=== PATIENT | female | born 1945 | race Caucasian/White ===

== ENCOUNTER → 2017-09-28 07:05 | Outpatient (CLI) | payer MEDICARE, BC, SELFPAY ==
[2017-09-28 09:52] LABS: AST(SGOT) 20 U/L (15-37); Alanine Aminotransfer ALT/SGPT 20 U/L (13-56); Albumin, Serum 3.8 g/dL (3.2-5.0); Alkaline Phosphatase 95 U/L (45-117); Anion Gap 5 (5-15); BUN 18 mg/dL (7-18); BUN/Creat Ratio 17.1 RATIO (10-20); Chloride 104 mmol/L (98-107); Cholesterol 175 mg/dL (200); Creatinine, Serum 1.05 mg/dL (0.55-1.02); EST Glomerular Filtration Rate 55 mL/min (>60); Est Glom Filt Rate - Afr Amer 66 mL/min (>60); Globulin 3.9 g/dL (2.2-4.2); Glucose 84 mg/dL (74-106); High Density Lipoprotein 69 mg/dL; Potassium 3.9 mmol/L (3.5-5.1); Protein, Total 7.7 g/dL (6.4-8.2); Sodium Level 140 mmol/L (136-145); Triglycerides 115 mg/dL; Very Low Density Lipoprotein 23 mg/dL (5-40)
== END ==
PROVIDERS: Family Provider Family Medicine; PCP Family Medicine; Visit Provider Family Medicine
DX: I10 Essential (primary) hypertension (principal)
CPT/HCPCS: 36415; 80053; 80061

== ENCOUNTER → 2018-08-12 | Outpatient (CLI) | payer MEDICARE, BC, SELFPAY ==
[2018-08-06 15:25] VITALS: BMI 25.9
[2018-08-12 12:30] LABS: ALB/GLOB Ratio 0.9 RATIO (0.9-2.4); AST(SGOT) 23 U/L (15-37); Alanine Aminotransfer ALT/SGPT 23 U/L (13-56); Albumin, Serum 3.6 g/dL (3.2-5.0); Alkaline Phosphatase 96 U/L (45-117); BUN 15 mg/dL (7-18); BUN/Creat Ratio 15.3 RATIO (10-20); Calcium,Total 9.2 mg/dL (8.5-10.1); Chloride 104 mmol/L (98-107); Cholesterol 163 mg/dL (200); Creatinine, Serum 0.98 mg/dL (0.55-1.02); EST Glomerular Filtration Rate 59 mL/min (>60); Est Glom Filt Rate - Afr Amer 72 mL/min (>60); Globulin 3.8 g/dL (2.2-4.2); Glucose 84 mg/dL (74-106); Potassium 4.6 mmol/L (3.5-5.1); Protein, Total 7.4 g/dL (6.4-8.2); Sodium Level 141 mmol/L (136-145); Triglycerides 105 mg/dL; Very Low Density Lipoprotein 21 mg/dL (5-40)
[2018-08-12 12:31] LABS: Anion Gap 5 (5-15); High Density Lipoprotein 68 mg/dL
== END | disposition home or self-care (01) ==
LOC: BIMLAB 08:00
PROVIDERS: Family Provider Family Medicine; PCP Family Medicine; Visit Provider Family Medicine
DX: E78.5 Hyperlipidemia, unspecified (principal)
CPT/HCPCS: 36415; 80053; 80061

== ENCOUNTER → 2018-12-23 12:40 | Outpatient (CLI) | payer MEDICARE, BC, SELFPAY ==
[2018-12-23 12:34] VITALS: BMI 25.9
--- NOTE | 2018-12-23 12:44 | RAD_ITS ---
STUDY: X-RAY - LEFT HAND REASON FOR EXAM: Fall with dislocation of the ring finger in September, knot at base of finger. TECHNIQUE: 3 view(s) of the hand. COMPARISON: None. FINDINGS: There is osteopenia. Normal radiocarpal articulation. Normal distal radioulnar joint. Normal visualized carpal bones. There is moderate joint space narrowing of the triscaphe articulation. There is severe joint space narrowing of the carpometacarpal articulation of the thumb with an ossicle at the radial aspect of the trapezium. Normal second through fifth carpometacarpal joints. There is a nondisplaced oblique fracture of the fourth metacarpal with callus formation. Normal metacarpophalangeal joint of the thumb. Normal interphalangeal joint of the thumb. Normal proximal and distal phalanges of the thumb. Normal metacarpophalangeal joints of the second through fifth fingers. Normal proximal and distal interphalangeal joints of the second through fifth fingers. Normal phalanges of the second through fifth fingers. There is soft tissue swelling of the proximal fourth digit. RAD/Hand Min 3 Views IMPRESSION: Healing fourth metacarpal fracture. 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 Electronically Signed: Scott Edward MD at 13:53 EDT Tel , Service support ,
--- NOTE | 2018-12-23 13:12 | RAD_ITS ---
STUDY: X-RAY - LEFT HAND, ATTENTION RING FINGER REASON FOR EXAM: Fall 2 months ago. TECHNIQUE: 3 view(s) of the finger were obtained. COMPARISON: None. FINDINGS: There is osteopenia. There is a nondisplaced oblique fracture of the fourth metacarpal diaphysis with callus formation. Normal metacarpophalangeal joint. Normal proximal phalanx. Normal middle phalanx. Normal distal phalanx. Normal proximal interphalangeal joint. Normal distal interphalangeal joint. There is soft tissue swelling of the proximal fourth digit. RAD/Finger(s) Min 2 Views IMPRESSION: Healing fracture of the fourth metacarpal. Electronically Signed: Scott Edward MD at 13:52 EDT Tel , Service support ,
== END ==
PROVIDERS: Family Provider Family Medicine; PCP Family Medicine; Referring Provider Orthopaedic Surgery; Visit Provider Orthopaedic Surgery
DX: S69.92XA Unspecified injury of left wrist, hand and finger(s), initial encounter (principal); S62.609A Fracture of unspecified phalanx of unspecified finger, initial encounter for closed fracture
CPT/HCPCS: 73130; 73140

== ENCOUNTER → 2018-12-25 14:48 | Outpatient (CLI) | payer MEDICARE, BC, SELFPAY ==
[2018-12-23 12:34] VITALS: BMI 25.9
--- NOTE | 2018-12-25 14:49 | US_ITS ---
STUDY: SUPERFICIAL ULTRASOUND - RIGHT FOURTH DIGIT REASON FOR EXAM: Female, 73 years old. Palmar lump. TECHNIQUE: A superficial ultrasound was performed with real-time and static dennis-scale imaging. COMPARISON: None. FINDINGS: The entire digit was examined by ultrasound. No sonographic abnormality is seen. US/Ext Non Vasc Limited/Soft Tiss IMPRESSION: No sonographic abnormality is seen. Electronically Signed: Satinder Woodruff, at 15:12 EDT , Service support ,
== END ==
PROVIDERS: Family Provider Family Medicine; PCP Family Medicine; Referring Provider Orthopaedic Surgery; Visit Provider Orthopaedic Surgery
DX: R22.31 Localized swelling, mass and lump, right upper limb (principal)
CPT/HCPCS: 76882

== ENCOUNTER 2019-02-25 08:07 | Day surgery (SDC) | payer MEDICARE, BC, SELFPAY ==
[2019-02-03 08:32] VITALS: BMI 25.9
--- NOTE | 2019-02-04 01:02 | HP_ITS ---
Intake Vital Signs 02/03/19 Body Mass Index (BMI) 25.9 02/03/19 Height 5 ft 4 in 02/03/19 Weight: 150 lb 02/03/19 Body Mass Index (BMI) 25.7 02/03/19 Blood Pressure 147/82 H 02/03/19 Blood Pressure Location Lt brachial 02/03/19 Blood Pressure Position Sitting 02/03/19 Respiratory Rate 18 Intake Visit Reasons: Update H & P Schedule EGD Chief Complaint: cold and sinus symptoms Sales Enablement Manager Required: No Is patient in pain?: No Allergies codeine Allergy (Unknown, Verified 02/03/19 08:32) unknown Medications calcium-vitamin D3-vitamin K 500 mg-500 unit-40 mcg chewable tablet tab PO TID tab 10/18/17 [History Confirmed 02/03/19] atorvastatin 10 mg tablet 10 mg PO QDAY #90 tab 08/06/18 [Rx Confirmed 02/03/19] omeprazole 40 mg capsule,delayed release 40 mg PO QDAY #90 cap 08/06/18 [Rx Confirmed 02/03/19] gabapentin 300 mg capsule 300 mg PO TID #270 cap 09/19/18 [Rx Confirmed 02/03/19] losartan 50 mg-hydrochlorothiazide 12.5 mg tablet 1 tab PO QDAY #90 tab 11/18/18 [Rx Confirmed 02/03/19] PFSH Medical History Scoliosis (Acute) GERD (gastroesophageal reflux disease) (Chronic) Arthritis (Chronic) Osteopenia (Chronic) IBS (irritable bowel syndrome) (Chronic) Hyperlipemia (Chronic) Hypertension (Chronic) Surgical History Hx of arthroscopy of shoulder (Acute) Hx of tonsillectomy (Acute) History of esophagogastroduodenoscopy (EGD) (Acute) Family History Mother Arthritis Myocardial infarction, Onset Age: 92 Father Myocardial infarction, Onset Age: 80 Social History (Updated 02/04/19 @ 13:02 by Maddie Pearce MD) Smoking Status: Former smoker second hand exposure: No alcohol intake: current alcohol intake frequency: holidays/special occasions only substance use type: does not use caffeine: Yes what type of physical activity do you participate in: aerobics frequency: 3-4 times per week HPI HPI HPI: MITRA PORTILLO, is a 73 F who presents to the office today for HPI HPI Surgical H&P: Yes HPI: MITRA PORTILLO, is a 73 F who presents to the office today for surveillance of Atkinson's. Patient denies any abdominal pain, nausea, vomiting, reflux. She is on omeprazole 40 mg daily. Patient's last EGD by Dr. Umaña was in April 2016 which biopsies at the GE junction did not show any Atkinson's at that time. Patient initially was diagnosed with Atkinson's in 2012 with no dysplasia she also had an ulcer and gastritis at that time and was placed on omeprazole which she has been on since. Patient had additional EGD in 2012 and 2013 and biopsies of the GE junction did not show Atkinson's on histology. Exam Const General: cooperative, comfortable, no acute distress Resp Effort & Inspection: normal respiratory effort Cardio Rate: regular rate GI Inspection: non-distended Palpation: soft, no guarding, nontender Assessment & Plan Problems 1. GERD (gastroesophageal reflux disease) K21.9 2. 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 Patient initially was diagnosed with Atkinson's in 2012 with no dysplasia she also had an ulcer and gastritis at that time and was placed on omeprazole which she has been on since. Patient had additional EGD in 2012 and 04/2013 which did not show additional biopsies of Atkinson's. We will schedule EGD for surveillance of Atkinson's. I have discussed the above with the patient. I have offered the patient EGD for evaluation. I have explained the risks/benefits of the procedure and described the procedure. I have discussed the risks with the patient, including but not limited to: infection, bleeding, perforation of the GI tract requiring emergency surgery, inability to complete the procedure, injury to any internal organs, complications of anesthesia, etc. - the patient understands and agrees to proceed. I have answered all the patient's questions to the patient's satisfaction and the patient has no further questions. Maddie Pearce M.D. Pager: [phone] [facility] [address] [place] [address], [address] [place] [id number] Office: [phone] Plan Detail Follow Up We will schedule EGD Coding Level of Care Code Off vis,est,level 3 Diagnoses GERD (gastroesophageal reflux disease) K21.9 History of Atkinson's esophagus Z87.19 02/04/19 1303 <Electronically signed by Maddie Tripathi am, MD> Date _ Maddie Pearce MD I have re-examined the patient. There are no clinical changes since date of exam.
[2019-02-25] VITALS (7 sets, daily range): BP systolic 96–140; BP diastolic 42–80; PULSE 58–74; RESP 16–18; TEMP 36–37.1; O2SAT 94–99; BMI 25.7
[2019-02-25] MEDS: Lactated Ringers 1,000 ML 75 ML IV (08:39)
--- NOTE | 2019-02-25 09:30 | EGD_PTH ---
PATIENT: MITRA PORTILLO LOC: EN U#:[id number] AGE/SX: 73/F ROOM: RE02/25/[address]: Dr. Maddie Pearce MD : 1945 BED: DIS: 02/25/2019 SPEC #: [id number] RECD: 02/25/19 10:29 STATUS: BEULAH REJuanpablo #: [id number] FRANK: 02/25/19 09:[address]: Maddie Pearce DEPT: SURGICAL PATHOLOGY RECD BY: Agapito Ferrer ENTERED: 02/25/19 11:02 SP TYPE: EGD BIOPSY OT DR: Dr. Karri Riggins, DO Tissues: A - Gastric mucous membrane B - Gastric mucous membrane Procedures: Special Stain Group II Surgery Specimen Level IV Alcian Blue/PAS (control) HEADER OPERATION[place] [place] DIAGNOSIS: GERD, Atkinson's TISSUE SUBMITTED: A - Antrum biopsy for H. pylori and path, B - GE junction biopsy MICROSCOPIC DIAGNOSIS A. Antrum biopsy: Mild gastritis. See microscopic description and comment. B. GE junction, biopsy: Fragments of gastroesophageal mucosa with focal intestinal metaplasia (goblet cell metaplasia) consistent with Atkinson's esophagus. Mild chronic inflammation. Negative for dysplasia. See comment. SJ:rg 02/26/19 COMMENT A. The results of immunohistochemistry for Helicobacter pylori will be reported separately ([id number]). B. Alcian blue/PAS stain with matched control is used in the evaluation of the specimen. This case has been reviewed in consultation with Dr. Palacios who concurs with the above diagnosis. MICROSCOPIC DESCRIPTION Slides are reviewed. A. The specimen shows fragments of gastric mucosa with chronic inflammatory cell infiltrates in the lamina propria consisting of lymphocytes and plasma cells, consistent with mild chronic gastritis. GROSS DESCRIPTION A - Received in fixative is one container labeled with the patient's name and designated antrum biopsy. The specimen consists of one irregular fragment of light krueger soft tissue that measures 0.4 x 0.2 x 0.1 cm. The specimen is totally submitted in one cassette. B - Received in fixative is one container labeled with the patient's name and designated GE junction biopsy. The specimen consists of multiple irregular fragments of light krueger soft tissue that in aggregate measure 0.8 x 0.4 x 0.1 cm. The specimen is totally submitted in one cassette. / SJ:addie 02/25/19 TC: CPT: 33623 x2, 09242
--- NOTE | 2019-02-25 09:30 | IMM_PTH ---
PATIENT: MITRA PORTILLO LOC: EN U#:[id number] AGE/SX: 73/F ROOM: RE02/25/[address]: Dr. Maddie Pearce MD : 1945 BED: DIS: 02/25/2019 SPEC #: [id number] RECD: 02/25/19 12:23 STATUS: BEULAH REQ #: [id number] FRANK: 02/25/19 09:[address]: Maddie Pearce DEPT: IMMUNOHISTOCHEMISTRY RECD BY: Malika Rivera ENTERED: 02/25/19 12:24 SP TYPE: IMMUNO OTHR DR: Dr. Karri Riggins, DO Tissues: A - Stomach, NOS Procedures: H Pylori (initial) PHYSICIAN & INSTITUTION [place] [address] SPECIMEN INFORMATION: Tissue Source: A - Antrum biopsy Clinical Info: GERD, Atkinson's Specimen Number: [id number] CPT code: 99678 METHODOLOGY: Deparaffinized sections of prefer/formalin-fixed tissue or PAP/DQ stained slides are incubated with monoclonal/polyclonal antibodies/oligonucleotide probes. Localization is made via biotin free immunoperoxidase method. Appropriate controls are performed and reacted as expected. Results on target cell population are indicated in the following table: RESULTS: ANTIBODY / CLONE RESULT Block A H Pylori (polyclonal) negative These tests were developed and their performance characteristics determined by [facility]. They may not have been cleared or approved by the U.S. Food and Drug Administration. The FDA has determined that such clearance or approval is not necessary. INTERPRETATION: A. Antrum biopsy: Negative for Helicobacter pylori organisms. SJ:addie 02/26/19
--- NOTE | 2019-02-25 09:49 | OP.EGD_ITS ---
Patient Name: Sandhya Jain Procedure Date: 02/25/2019 9:25 AM Date of : 1945 Age: 73 Procedure: Upper GI endoscopy Indications: Follow-up of Atkinson's esophagus Providers: Maddie Pearce MD Referring MD: Karri Riggins Medicines: Monitored Anesthesia Care Patient Profile: This is a 73 year old female. Complications: No immediate complications. Procedure: Pre-Anesthesia Assessment: - Prior to the procedure, a History and Physical was performed, and patient medications and allergies were reviewed. The patient's tolerance of previous anesthesia was also reviewed. The risks and benefits of the procedure and the sedation options and risks were discussed with the patient. All questions were answered, and informed consent was obtained. Prior Anticoagulants: The patient has taken no previous anticoagulant or antiplatelet agents. ASA Grade Assessment: II - A patient with mild systemic disease. After reviewing the risks and benefits, the patient was deemed in satisfactory condition to undergo the procedure. After obtaining informed consent, the endoscope was passed under direct vision. Throughout the procedure, the patient's blood pressure, pulse, and oxygen saturations were monitored continuously. The gastroscope was introduced through the mouth, and advanced to the second part of duodenum. The upper GI endoscopy was accomplished without difficulty. The patient tolerated the procedure well. Scope In: 9:34:43 AM Scope Out: 9:40:47 AM Total Procedure Duration Time 0 hours 6 minutes 4 seconds Findings: The Z-line was irregular and was found 40 cm from the incisors. Three biopsies were obtained with cold forceps for histology in a targeted manner at the gastroesophageal junction. Localized mildly erythematous mucosa without bleeding was found in the gastric antrum. Biopsies were taken with a cold forceps for histology. Biopsies were taken with a cold forceps for Helicobacter pylori cultures. The examined duodenum was normal. Impression: - Z-line irregular, 40 cm from the incisors. - Erythematous mucosa in the antrum. Biopsied. - Normal examined duodenum. - Three biopsies were obtained at the gastroesophageal junction. Recommendation: - Await pathology results. - Repeat upper endoscopy 2-3 years for surveillance. - Discharge patient to home. - Resume previous diet. - Continue present medications. - Will d/w patient changing omeprazole to protonix 40 mg PO daily due to the erythema in antrum or adding carafate for 2 weeks or waiting for the biopsy results then will decide as patient denies any symptoms. Procedure Code(s): --- Professional --- 66477, Esophagogastroduodenoscopy, flexible, transoral; with biopsy, single or multiple Diagnosis Code(s): --- Professional --- K22.8, Other specified diseases of esophagus K31.89, Other diseases of stomach and duodenum K22.70, Atkinson's esophagus without dysplasia CPT copyright 2017 [employer]. All rights reserved. The codes documented in this report are preliminary and upon nipping machine operator review may be revised to meet current compliance requirements. MD Maddie Nolan MD 02/25/2019 9:48:57 AM This report has been signed electronically. Number of Addenda: 0 Note Initiated On: 02/25/2019 9:25 AM
--- NOTE | 2019-02-25 09:55 | EKG12_ITS ---
Test Reason : POST OP Blood Pressure : / mmHG Vent. Rate : 062 BPM Atrial Rate : 062 BPM P-R Int : 154 ms QRS Dur : 076 ms QT Int : 442 ms P-R-T Axes : 073 038 019 degrees QTc Int : 448 ms Sinus rhythm with Premature atrial complexes Otherwise normal ECG No previous ECGs available Confirmed by MARZENA LUCERO, ROSHAN ([id number]), editor & co founder TOM JUSTICE ([id number]) on 03/03/2019 1:47:25 PM Referred By: Karri Riggins Confirmed By:HARLAN IVAN MD
== END 2019-02-25 10:49 | disposition home or self-care (01) ==
LOC: EN 08:07 → AC 08:08
PROVIDERS: Family Provider Family Medicine; PCP Family Medicine; Referring Provider Family Medicine; Visit Provider Surgery
PROC: 0DJ08ZZ Inspection of Upper Intestinal Tract, Via Natural or Artificial Opening Endoscopic (ICD-10-PCS; CPT 43235; principal; 2019-02-25 09:25)
DX: K29.70 Gastritis, unspecified, without bleeding (principal); K22.8 Other specified diseases of esophagus; K21.9 Gastro-esophageal reflux disease without esophagitis; M41.9 Scoliosis, unspecified; M19.90 Unspecified osteoarthritis, unspecified site; M85.80 Other specified disorders of bone density and structure, unspecified site; K58.9 Irritable bowel syndrome, unspecified; I10 Essential (primary) hypertension; E78.00 Pure hypercholesterolemia, unspecified; Z86.2 Personal history of diseases of the blood and blood-forming organs and certain disorders involving the immune mechanism; Z78.0 Asymptomatic menopausal state; Z87.19 Personal history of other diseases of the digestive system; Z79.899 Other long term (current) drug therapy; Z87.891 Personal history of nicotine dependence
CPT/HCPCS: 43239; 88305; 88313; 88342; 93005; J7120; J2405

== ENCOUNTER → 2019-03-25 10:22 | Outpatient (CLI) | payer MEDICARE, BC, SELFPAY ==
[2019-03-25 09:57] VITALS: BMI 25.7
[2019-03-25 12:23] LABS: Absolute Lymphocyte Count 2.02 X10^3/uL (0.83-4.51); Absolute Neutrophil Count 3.7 X10^3/uL (2.0-7.7); Basophil# 0.03 X10^3/uL; Basophil% 0.5 % (0-1); Eosinophil# 0.09 X10^3/uL; Eosinophils% 1.4 % (0-5); Hematocrit 39.7 % (37-47); Hemoglobin 13.3 g/dL (12.0-15.0); Lymphocyte # 2.02 X10^3/ul (4.0); Lymphocyte % 31.6 % (19-41); Mean Corp Hgb Conc 33.5 g/dL (32-36); Mean Corpuscular Hgb 30.9 pg (27.0-32.0); Mean Corpuscular Volume 92.3 fL (81-99); Mean Platelet Vol. 10.9 fl (6.2-12.0); Monocyte# 0.52 X10^3/uL; Monocyte% 8.1 % (0-10); NRBC Flagged by Analyzer 0 % (0-5); Neutrophil # 3.73 X10^3/uL (2.7-7.7); Neutrophil % 58.2 % (47-70); Platelet Count 262 K/mm3 (150-450); RBC Distribution Width CV 13.2 % (11.6-14.6); RBC Distribution Width SD 44.9 fl (35.1-43.9); White Blood Count 6.4 K/mm3 (4.4-11.0)
[2019-03-25 12:26] LABS: ALB/GLOB Ratio 1.1 RATIO (0.9-2.4); AST(SGOT) 28 U/L (15-37); Alanine Aminotransfer ALT/SGPT 27 U/L (13-56); Albumin, Serum 4.1 g/dL (3.2-5.0); Alkaline Phosphatase 87 U/L (45-117); Anion Gap 7 (5-15); BUN 16 mg/dL (7-18); BUN/Creat Ratio 15.2 RATIO (10-20); Calcium,Total 9.6 mg/dL (8.5-10.1); Chloride 105 mmol/L (98-107); Creatinine, Serum 1.05 mg/dL (0.55-1.02); EST Glomerular Filtration Rate 55 mL/min (>60); Est Glom Filt Rate - Afr Amer 66 mL/min (>60); Globulin 3.9 g/dL (2.2-4.2); Glucose 102 mg/dL (74-106); Potassium 4.6 mmol/L (3.5-5.1); Sodium Level 141 mmol/L (136-145)
== END ==
PROVIDERS: Family Provider Family Medicine; PCP Family Medicine; Visit Provider Internal Medicine
DX: L29.9 Pruritus, unspecified (principal); L30.9 Dermatitis, unspecified
CPT/HCPCS: 36415; 80053; 85025

== ENCOUNTER → 2019-07-23 09:10 | Outpatient (CLI) | payer MEDICARE, BC, SELFPAY ==
[2019-07-21 14:26] VITALS: BMI 25.7
== END ==
PROVIDERS: PCP Family Medicine; Referring Provider Family Medicine; Visit Provider Family Medicine
DX: R19.7 Diarrhea, unspecified (principal)
CPT/HCPCS: 87506

== ENCOUNTER 2020-01-22 08:18 | Day surgery (SDC) | payer MEDICARE, BC, SELFPAY ==
[2020-01-04 09:16] VITALS: BMI 25.7
[2020-01-22] VITALS (8 sets, daily range): BP systolic 94–126; BP diastolic 49–78; PULSE 68–81; RESP 16; TEMP 36–36.8; O2SAT 95–100; BMI 24.8
--- NOTE | 2020-01-22 08:31 | PCM.HP.BLA ---
Problem List (1) Diarrhea in adult patient Status: Chronic History and Physical Date of Admission: 01/22/20 Intake Vital Signs 01/04/20 Height 5 ft 6 in 01/04/20 Weight: 155 lb 01/04/20 BMI 25.0 01/04/20 BP 117/71 01/04/20 Blood Pressure Location Rt brachial 01/04/20 Position Sitting 01/04/20 Respiration 18 01/04/20 Pulse 67 01/04/20 Pulse Source Monitor 01/04/20 Temp 97.2 F L 01/04/20 Temp Source Temporal 01/04/20 Pulse Oximetry (%) 94 01/04/20 Oxygen Delivery Method room air Intake Visit Reasons: DIARRHEA, CSCOPE Chief Complaint: diarrhea/c-scope Market Risk Specialist Required: No Is patient in pain?: No Allergies codeine Allergy (Unknown, Verified 01/04/20 09:15) unknown Medications calcium-vitamin D3-vitamin K 500 mg-500 unit-40 mcg chewable tablet 1 tab PO TID tab 10/18/17 [History Confirmed 01/04/20] atorvastatin 10 mg tablet 10 mg PO QDAY #90 tab 06/15/19 [Rx Confirmed 01/04/20] dicyclomine 20 mg tablet 20 mg PO BID #30 tab 07/21/19 [Rx Confirmed 01/04/20] cholestyramine (with sugar) 4 gram oral powder 4 g PO BID #378 g 07/29/19 [Rx Confirmed 01/04/20] gabapentin 300 mg capsule 300 mg PO TID #270 cap 10/21/19 [Rx Confirmed 01/04/20] hydrochlorothiazide 12.5 mg tablet 12.5 mg PO DAILY #90 tab 10/27/19 [Rx Confirmed 01/04/20] losartan 50 mg tablet 50 mg PO DAILY #90 tab 10/27/19 [Rx Confirmed 01/04/20] diphenoxylate-atropine 2.5 mg-0.025 mg tablet 1 tab PO BID PRN #60 tab 11/30/19 [Rx Confirmed 01/04/20] pantoprazole 40 mg tablet,delayed release 40 mg PO DAILY #30 tab 12/28/19 [Rx Confirmed 01/04/20] PFSH Medical History (Updated 01/04/20 @ 09:14 by Vonda Sauer) Scoliosis (Acute) GERD (gastroesophageal reflux disease) (Chronic) Arthritis (Chronic) Osteopenia (Chronic) IBS (irritable bowel syndrome) (Chronic) Hyperlipemia (Chronic) Hypertension (Chronic) Diarrhea (Acute) Surgical History Hx of arthroscopy of shoulder (Acute) Hx of tonsillectomy (Acute) History of esophagogastroduodenoscopy (EGD) (Acute) Family History Mother Arthritis Myocardial infarction, Onset Age: 92 Father Myocardial infarction, Onset Age: 80 Social History (Updated 01/04/20 @ 10:[address] Mario Valdes MD) Smoking Status: Former smoker second hand exposure: No alcohol intake: current alcohol intake frequency: holidays/special occasions only substance use type: does not use caffeine: Yes what type of physical activity do you participate in: aerobics frequency: 3-4 times per week HPI HPI HPI: MITRA PORTILLO, is a 74 F who presents to the office today for chronic diarrhea. The patient has been having diarrhea since April. Patient does not have any abdominal pain. There is no blood in her stool. She has been tested for ova and parasites and has tried Bentyl and cholestyramine. ROS General General: No weight change, appetite, fatigue, colon cancer, breast cancer or weakness HEENT HEENT: No difficulty swallowing, eye injury, eye surgery, swollen glands or hoarseness Endo Endocrine: No thyroid disease, diabetes mellitus, thyroid cancer, Hair loss, heat intolerance or cold intolerance Skin Skin: No rash or changing moles Breast Breast: No left breast lump, right breast lump, nipple discharge, breast pain, abnormal mammogram, abnormal US or breast enlargement Musc Musculoskeletal: Yes back problems and arthritis; no rheumatoid arthritis, gout or joint pain Cardio Cardiovascular: No murmur, pacemaker, heart disease, atrial fibrillation, high blood pressure, heart attack, heart stent, palpitations, shortness of breat with exertion or chest pain Psych Psychiatric: No depression, anxiety or hearing voices Resp Respiratory: No shortness of breath, No sleep apnea, No cough, No COPD, No asthma, No emphysema, No wheezing Gastro Gastrointestinal: No abdominal pain, No nausea or vomiting, Yes diarrhea, No constipation, No blood in stool, No acid reflux, Yes hemorrhoids, No ulcers, No gallbladder problem, No black,tarry stools Franko Hematologic: No blood thinners, No blood disorders, No bleeding, No anemia, No blood clots Neuro Neurologic: No system reviewed and no additional complaints, except as docu, No as per HPI, No abnormal walking, No abnormal hearing, No abnormal movements, No abnormal speech, No behavioral changes, No burning sensations, No confusion, No seizure-like activity, No unsteadiness, No dizziness, No localized weakness, No frequent falls, No headache(s), No lack of coordination, No loss of vision, No memory loss, No numbness, No other visual disturbances, No radiating pain, No restless legs, No sensory deficit, No fainting, No tingling, No tremor(s), No weakness, No other Exam Const General: cooperative Orientation: alert, oriented x3 Chest Breast Palpation: No nipple discharge Resp Effort & Inspection: normal respiratory effort Auscultation: clear to auscultation bilaterally Cardio Rate: regular rate Rhythm: regular rhythm Heart Sounds: no murmurs GI Inspection: non-distended Palpation: soft, nontender Assessment & Plan Problems 1. Diarrhea in adult patient R19.7 Plan Patient has been having diarrhea since April. She reports no blood in the stool but she is not able to slow the stool down. She has 2-3 bowel movements a day and they are loose and she has not had a solid bowel movement since April. We will perform colonoscopy with random biopsies of the colon. I explained endoscopy in detail to the patient. I explained the risks including but not limited to stroke or heart attack with anesthesia, perforation of the GI tract, bleeding, infection. I explained that any of these could necessitate further emergency surgery. The patient understands and all questions were answered sufficiently. The patient wishes to proceed with procedure. We discussed the current risks associated with COVID-19. While it is understood that there is a community spread of COVID-19, the risk of joel COVID-19 while at [facility] ([facility]) is very low; however, the risk cannot be completely mitigated because of the community spread of the disease. We discussed in detail the risk of exposure to and/or potential harm posed by the COVID-19 virus with having a surgery/procedure at this time versus the risk of delaying the surgery/procedure. It is not possible to know either the risk of delaying the surgery or procedure or chance of getting an infection with perfect accuracy, but a joint decision was made to proceed at this time with the scheduled surgery/procedure as indicated on the consent form. Patient was notified that we will need to comply with any screening or testing [facility] wishes to perform or that surgery may be delayed for any positive results. Mario Valdes MD Pager: [facility] [address] [place] [address], [address] [place] [address] Office: I have re-examined the patient. There are no clinical changes since date of exam.
[2020-01-22] MEDS: Lactated Ringers 1,000 ML 100 ML IV (08:55)
--- NOTE | 2020-01-22 09:30 | COLBX_PTH ---
PATIENT: MITRA PORTILLO LOC: EN U#:[id number] AGE/SX: 74/F ROOM: RE01/22/[address]: Dr. Mario Valdes MD : 1945 BED: DIS: 01/22/2020 SPEC #: [id number] RECD: 01/22/20 11:51 STATUS: BEULAH REJuanpablo #: [id number] FRANK: 01/22/20 09:[address]: Mario Valdes DEPT: SURGICAL PATHOLOGY RECD BY: Garrick Miller ENTERED: 01/22/20 13:23 SP TYPE: COLON BX OTHR DR: Dr. Karri Riggins, DO Tissues: A - Gastric mucous membrane B - COLON BIOPSY Procedures: Trichrome (control) Special Stain Group II Surgery Specimen Level IV HEADER OPERATION: Colonoscopy ([facility]) PRE-OP DIAGNOSIS: Diarrhea TISSUE SUBMITTED: A - Hepatic flexure snare, B - Random colon biopsy MICROSCOPIC DIAGNOSIS A. Hepatic flexure polyp, biopsy: Fragments of tubular adenoma. B. Colon, random biopsy: Fragments of colonic mucosa with changes consistent with collagenous colitis. See comment. KAIN:addie 01/25/20 COMMENT B. Trichrome stain with matched control is used in the evaluation of the specimen and shows focal thickening of subepithelial collagen band. MICROSCOPIC DESCRIPTION Slides are reviewed. GROSS DESCRIPTION A - Received in fixative is one container labeled with the patient's name and designated hepatic flexure polyp. The specimen consists of multiple irregular fragments of kreuger-pink soft tissue that in aggregate measure 1 x 1 x 0.3 cm. The specimen is totally submitted in one cassette. B - Received in fixative is one container labeled with the patient's name and designated random colonic biopsy. The specimen consists of multiple irregular fragments of light krueger soft tissue that in aggregate measure 2 x 0.5 x 0.1 cm. The specimen is totally submitted in one cassette. / KAIN:addie 01/22/20 TC:1 CPT: 08921 x2, 65287
--- NOTE | 2020-01-22 10:29 | OP.COLON_ITS ---
Patient Name: Sandhya Jain Procedure Date: 01/22/2020 9:44 AM Date of : 1945 Age: 74 Procedure: Colonoscopy Indications: Chronic diarrhea Providers: Mario Valdes MD Referring MD: Karri Riggins Medicines: Monitored Anesthesia Care Patient Profile: This is a 74 year old female. Refer to note in patient chart for documentation of history and physical. Last Colonoscopy: several years ago. Complications: No immediate complications. Estimated blood loss: Minimal. Procedure: Pre-Anesthesia Assessment: - Prior to the procedure, a History and Physical was performed, and patient medications and allergies were reviewed. The patient's tolerance of previous anesthesia was also reviewed. The risks and benefits of the procedure and the sedation options and risks were discussed with the patient. All questions were answered, and informed consent was obtained. Prior Anticoagulants: The patient has taken no previous anticoagulant or antiplatelet agents. After reviewing the risks and benefits, the patient was deemed in satisfactory condition to undergo the procedure. After I obtained informed consent, the scope was passed under direct vision. Throughout the procedure, the patient's blood pressure, pulse, and oxygen saturations were monitored continuously. The colonoscope was introduced through the anus and advanced to the cecum, identified by appendiceal orifice and ileocecal valve. The colonoscopy was performed with moderate difficulty due to a redundant colon. The patient tolerated the procedure well. The quality of the bowel preparation was good. Scope In: 9:52:37 AM Scope Withdrawal Time 0 hours 8 minutes 38 seconds Scope Out: 10:21:30 AM Total Procedure Duration Time 0 hours 28 minutes 53 seconds Findings: A medium polyp over 1 cm was found in the hepatic flexure. The polyp was sessile. The polyp was removed with a hot snare. Resection and retrieval were complete. Biopsies for histology were taken with a cold forceps from the entire colon for evaluation of microscopic colitis. The exam was otherwise without abnormality on direct and retroflexion views. Impression: - One medium polyp at the hepatic flexure, removed with a hot snare. Resected and retrieved. - The examination was otherwise normal on direct and retroflexion views. - Biopsies were taken with a cold forceps from the entire colon for evaluation of microscopic colitis. Recommendation: - Discharge patient to home. - Resume previous diet. - Continue present medications. - Await pathology results. - Repeat colonoscopy in 3 years for surveillance based on pathology results. Procedure Code(s): --- Professional --- 68695, Colonoscopy, flexible; with removal of tumor(s), polyp(s), or other lesion(s) by snare technique 57538, 59, Colonoscopy, flexible; with biopsy, single or multiple Diagnosis Code(s): --- Professional --- D12.3, Benign neoplasm of transverse colon (hepatic flexure or splenic flexure) K52.9, Noninfective gastroenteritis and colitis, unspecified CPT copyright 2017 [employer]. All rights reserved. The codes documented in this report are preliminary and upon manager intel review may be revised to meet current compliance requirements. Mario Valdes MD 01/22/2020 10:28:34 AM This report has been signed electronically. Number of Addenda: 0 Note Initiated On: 01/22/2020 9:44 AM
--- NOTE | 2020-01-22 10:29 | OP.CCLET_ITS ---
01/22/2020 Karri Riggins Re : Colonoscopy procedure for Sandhya Jain Dear Dr. Riggins This procedure was performed on Wednesday, January 22, 2020. My impressions and recommendations are as follows: Impressions : - One medium polyp at the hepatic flexure, removed with a hot snare. Resected and retrieved. - The examination was otherwise normal on direct and retroflexion views. - Biopsies were taken with a cold forceps from the entire colon for evaluation of microscopic colitis. Recommendations : - Discharge patient to home. - Resume previous diet. - Continue present medications. - Await pathology results. - Repeat colonoscopy in 3 years for surveillance based on pathology results. My findings are described in the full procedure note, which is enclosed. If I can be of further assistance, please feel free to contact me at Doctor phone number(s): , Work: . Sincerely, Mario Valdes MD 01/22/2020 10:28:34 AM This report has been signed electronically.
== END 2020-01-22 11:10 | disposition home or self-care (01) ==
LOC: EN 08:19 → AC 08:19
PROVIDERS: Anesthesiology; PCP Family Medicine; Referring Provider Family Medicine; Visit Provider Surgery
PROC: 0DJD8ZZ Inspection of Lower Intestinal Tract, Via Natural or Artificial Opening Endoscopic (ICD-10-PCS; CPT 45378; principal; 2020-01-22 09:25)
DX: D12.3 Benign neoplasm of transverse colon (principal); K52.9 Noninfective gastroenteritis and colitis, unspecified; Z11.59 Encounter for screening for other viral diseases; I10 Essential (primary) hypertension; M48.00 Spinal stenosis, site unspecified; K21.9 Gastro-esophageal reflux disease without esophagitis; M19.90 Unspecified osteoarthritis, unspecified site; M85.80 Other specified disorders of bone density and structure, unspecified site; E78.5 Hyperlipidemia, unspecified; E78.00 Pure hypercholesterolemia, unspecified; Z78.0 Asymptomatic menopausal state; Z86.2 Personal history of diseases of the blood and blood-forming organs and certain disorders involving the immune mechanism; Z87.19 Personal history of other diseases of the digestive system; Z79.899 Other long term (current) drug therapy; Z87.891 Personal history of nicotine dependence
CPT/HCPCS: 45380; 45385; 87635; 88305; 88313; C9803; J7120; J2405; U0003

== ENCOUNTER → 2020-08-10 11:49 | Outpatient (CLI) | payer MEDICARE, BC, SELFPAY ==
[2020-08-10 11:29] VITALS: BMI 24.8
[2020-08-10 15:18] LABS: Absolute Lymphocyte Count 1.98 X10^3/uL (0.83-4.51); Absolute Neutrophil Count 3.4 X10^3/uL (2.0-7.7); Basophil# 0.03 X10^3/uL; Basophil% 0.5 % (0-1); Eosinophil# 0.09 X10^3/uL; Eosinophils% 1.5 % (0-5); Hematocrit 38.4 % (37-47); Hemoglobin 12.5 g/dL (12.0-15.0); Lymphocyte # 1.98 X10^3/ul (0.83-4.51); Lymphocyte % 32.5 % (19-41); Mean Corp Hgb Conc 32.6 g/dL (32-36); Mean Corpuscular Volume 95.3 fL (81-99); Mean Platelet Vol. 11.1 fl (6.2-12.0); Monocyte# 0.57 X10^3/uL; Monocyte% 9.4 % (0-10); NRBC Flagged by Analyzer 0 % (0-5); Neutrophil # 3.41 X10^3/uL (2.7-7.7); Neutrophil % 55.9 % (47-70); Platelet Count 273 K/mm3 (150-450); RBC Distribution Width SD 45.5 fl (35.1-43.9); Red Blood Count 4.03 M/mm3 (4.2-5.4); White Blood Count 6.1 K/mm3 (4.4-11.0)
[2020-08-10 15:37] LABS: AST(SGOT) 18 U/L (15-37); Alanine Aminotransfer ALT/SGPT 21 U/L (13-56); Albumin, Serum 3.9 g/dL (3.2-5.0); Alkaline Phosphatase 89 U/L (45-117); Anion Gap 4 (5-15); BUN 24 mg/dL (7-18); BUN/Creat Ratio 16.1 RATIO (10-20); Calcium,Total 9.9 mg/dL (8.5-10.1); Chloride 103 mmol/L (98-107); Cholesterol 193 mg/dL (200); Creatinine, Serum 1.49 mg/dL (0.55-1.02); EST Glomerular Filtration Rate 36 mL/min (>60); Est Glom Filt Rate - Afr Amer 44 mL/min (>60); Globulin 4.1 g/dL (2.2-4.2); Glucose 97 mg/dL (74-106); High Density Lipoprotein 82 mg/dL; Potassium 4.2 mmol/L (3.5-5.1); Sodium Level 137 mmol/L (136-145); Triglycerides 128 mg/dL; Very Low Density Lipoprotein 26 mg/dL (5-40)
== END ==
PROVIDERS: PCP Family Medicine; Referring Provider Family Medicine; Visit Provider Family Medicine
DX: I10 Essential (primary) hypertension (principal); K52.831 Collagenous colitis
CPT/HCPCS: 36415; 80053; 80061; 85025

== ENCOUNTER → 2020-09-20 13:39 | Outpatient (CLI) | payer MEDICARE, BC, SELFPAY ==
[2020-08-10 11:29] VITALS: BMI 24.8
[2020-09-20 15:25] LABS: Anion Gap 5 (5-15); BUN 18 mg/dL (7-18); BUN/Creat Ratio 17.5 RATIO (10-20); Calcium,Total 9.8 mg/dL (8.5-10.1); Chloride 105 mmol/L (98-107); Creatinine, Serum 1.03 mg/dL (0.55-1.02); EST Glomerular Filtration Rate 56 mL/min (>60); Est Glom Filt Rate - Afr Amer 67 mL/min (>60); Glucose 86 mg/dL (74-106); Potassium 4.7 mmol/L (3.5-5.1); Sodium Level 141 mmol/L (136-145)
== END ==
PROVIDERS: PCP Family Medicine; Referring Provider Family Medicine; Visit Provider Family Medicine
DX: I10 Essential (primary) hypertension (principal)
CPT/HCPCS: 36415; 80048

== ENCOUNTER → 2021-08-30 | Outpatient (CLI) | payer MEDICARE, BC, SELFPAY ==
[2021-08-30 17:02] LABS: ALB/GLOB Ratio 0.9 RATIO (0.9-2.4); AST(SGOT) 19 U/L (15-37); Alanine Aminotransfer ALT/SGPT 19 U/L (13-56); Albumin, Serum 3.6 g/dL (3.2-5.0); Alkaline Phosphatase 73 U/L (45-117); Anion Gap 5 (5-15); BUN 16 mg/dL (7-18); BUN/Creat Ratio 14.7 RATIO (10-20); Calcium,Total 9.7 mg/dL (8.5-10.1); Chloride 107 mmol/L (98-107); Cholesterol 199 mg/dL (200); Creatinine, Serum 1.09 mg/dL (0.55-1.02); EST Glomerular Filtration Rate 52 mL/min (>60); Est Glom Filt Rate - Afr Amer 63 mL/min (>60); Globulin 3.9 g/dL (2.2-4.2); Glucose 103 mg/dL (74-106); High Density Lipoprotein 83 mg/dL; Potassium 4.3 mmol/L (3.5-5.1); Protein, Total 7.5 g/dL (6.4-8.2); Sodium Level 141 mmol/L (136-145); Triglycerides 126 mg/dL; Very Low Density Lipoprotein 25 mg/dL (5-40)
== END | disposition home or self-care (01) ==
LOC: BIMLAB 15:04
PROVIDERS: PCP Family Medicine; Referring Provider Family Medicine; Visit Provider Family Medicine
DX: I10 Essential (primary) hypertension (principal)
CPT/HCPCS: 36415; 80053; 80061

== ENCOUNTER 2022-03-07 06:18 | Day surgery (SDC) | payer MEDICARE, BC, SELFPAY ==
[2022-03-07] VITALS (7 sets, daily range): BP systolic 104–151; BP diastolic 59–79; PULSE 66–71; RESP 16; TEMP 36.1–36.6; O2SAT 96–100; BMI 24.2
[2022-03-07] MEDS: Lactated Ringers 1,000 ML 15 ML IV (06:50)
--- NOTE | 2022-03-07 07:21 | HP.PCM_ITS ---
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 Patient denies any burning up her esophagus or epigastric pain. Patient symptoms are controlled with pantoprazole 40 mg p.o. daily. Last EGD was 2018. Office visit 01/15/2022 HPI HPI HPI: 76-year-old female presents for follow-up due to Atkinson's esophagus.? Patient has been on Protonix 40 mg p.o. daily since her last EGD in 2019.? Patient's initial EGD in 2012 showed Atkinson's however additional ones in biopsies did not show Atkinson's at that time.? EGD in 2019 did show Atkinson's with no dysplasia.? Patient denies any symptoms of burning of the esophagus or abdominal pain.? Patient did have a colonoscopy in 2019 for diarrhea and had some collagenous colitis currently patient states that the budesonide is working well for her and she only occasionally has diarrhea. [facility] Medical History (Updated 03/02/22 @ 15:18 by Lorrie Kramer) Alcohol use Arthritis Diarrhea Former smoker Gastric reflux GERD (gastroesophageal reflux disease) High cholesterol History of irregular heartbeat Hyperlipemia Hypertension IBS (irritable bowel syndrome) Osteopenia Post-menopausal Scoliosis Wears dentures Wears glasses Home Medications budesonide 3 mg capsule,delayed,extended release 3 mg PO QAM #90 ea 07/12/21 [Rx Last Taken Unknown] losartan 50 mg tablet 50 mg PO DAILY Blood pressure #90 tabs 07/12/21 [Rx Last Taken 03/07/22 05:30] pantoprazole 40 mg tablet,delayed release 40 mg PO DAILY reflux #90 tabs 10/19/21 [Rx Last Taken Unknown] atorvastatin 10 mg tablet 10 mg PO QHS #90 tabs 01/17/22 [Rx Last Taken Unknown] diphenhydramine HCl 25 mg capsule (Benadryl) 25 mg PO QHS PRN Sleep 03/02/22 [History Last Taken Unknown] fozqqmhvzueo-nqz-gtwqyvi-FA 200 mg-0.4 mg chewable tablet 1 tab PO BID 03/02/22 [History Last Taken Unknown] Allergy/AdvReac Type Severity Reaction Status Date / Time codeine Allergy Unknown unknown Verified 03/07/22 06:44 Family History Mother Arthritis Myocardial infarction, Onset Age: 92 Father Myocardial infarction, Onset Age: 80 Surgical History (Updated 03/02/22 @ 15:18 by Lorrie Kramer) History of colonoscopy History of esophagogastroduodenoscopy (EGD) Hx of arthroscopy of shoulder Hx of tonsillectomy Social History Smoking Status: Former smoker second hand exposure: No alcohol intake: current alcohol intake frequency: holidays/special occasions only substance use type: does not use caffeine: Yes what type of physical activity do you participate in: aerobics frequency: 3-4 times per week Past Medical/Surgical History Planned Operation Planned Operative Procedure/s: EGD S.O.S: No Previous Hospitalizations/Surgeries HX Hospitalizations: No HX of Surgeries: shoulder surgery right cscope egd 2019 Any Problems With Anesthesia: No You/Your Family Experience Fever (Hyperthermia) With Anes: No Cholinesterase deficiency: No Cardiovascular Hx Chest Pain within Last 2 months: No Hx of Irregular Heartbeat and/or Afib: Yes (irreg hr per hx, 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) Hx Heart Attack: No Hx Congestive Heart Failure: No Hx Rheumatic Fever: No Hx Hypertension: Yes (controlled with med) Hx Internal Defibrillator: No Hx Pacemaker: No Hx Cardiac Catheterization: No Hx Cardiac Surgery/Stents/Etc.: No Hx Stress Test: No Hx Pain in Legs when Walking/Leg Cramps: No Respiratory Chronic Cough: No HX of Shortness of Breath: No Hoarseness: No Hx Chronic Obstructive Pulmonary Disease (COPD): No Hx Asthma: No Hx Emphysema: No Hx Sleep Apnea: No Hx Respiratory Tract Infection/Cold (presently): No Do You Snore Loudly (louder than talking or can be heard): No Do You Often Feel Tired/ Fatigued/ Sleepy Dring Daytime?: No Has Anyone Observed You Stop Breathing During Sleep?: No Result (for STOP score): Negative Hx Smoking: Yes (quit 15 yrs ago) Smoking Status: Former smoker Gastrointestinal Hx Gastroesophageal Reflux: Yes Controlled With Meds: Yes (pantoprazole) Hx Gastrointestinal Disorders: Yes (ibs) Hx Gastrointestinal Bleed: No Hx Ulcer: Yes (in the past) Hx Hiatal Hernia: No Difficulty Chewing/Swallowing: No Special diet followed at home: No Hx Unplanned Weight Loss of 20#: No HX Unplanned Weight Gain of 20#: No Neurological Hx Seizures: No HX Syncope/Blackout Spells/Unconsciousness: No Hx Transient Ischemic Attacks (TIA): No Hx Multiple Sclerosis: No Hx Parkinson's Disease: No Hx Head/Neck Injury: No Hx Headaches: No Hx Back Injury/Pain: Yes (pain at times) Recent Onset of Speech Difficulty: No Restless Legs: No Does patient have nerve stimulator: No Blood Disorder Hx Leukemia: No Bleeding Tendencies: No Hx Deep Vein Thrombosis: No Hx High Cholesterol: Yes (on med) Blood Transmitted Disease: No Hx Hepatitis: No Hx Cirrhosis: No Hx Anemia: Yes (in the past as child) Hx Blood Disorders: No Reproduction Is Patient Lactating: No Hx Hysterectomy: No Hx Tubal Ligation: No Are You Post Menopause: Yes Genitourinary Hx Renal Disease: No Musculoskeletal Hx Arthritis: Yes Hx Rheumatoid Arthritis: No Hx Gout: No Recent Onset of an Orthopedic Problem: No Endocrine Hx Diabetes: No Thyroid Disease: No Hx Steroid Therapy: No Psycho/Social Hx Substance Use: No Hx Alcohol Use: Yes (social) Hx Anxiety: No Hx Depression: No Mental Illness: No Hx Dementia: No Miscellaneous Hx Cancer: No Recent Exposure to Contagious Disease: No Hx of C-Diff: No Any Loose Teeth: No (dentures) Allergies codeine Allergy (Unknown, Verified 03/07/22 06:44) unknown Discharge Is Pt Admitted From a Longterm, or a [place] [facility]: No After D/C, Where Do you Plan to Go: Return Home From the PAT History Number of Risk Factors: 4 Vital Signs Vital Signs Vital Signs: 03/07/22 06:42 03/07/22 06:42 Temperature 97.0 F L Temperature Source Temporal Pulse Rate 66 Respiratory Rate 16 Respiratory Pattern Normal Blood Pressure 151/79 H Blood Pressure Mean 103 Blood Pressure Source Monitor Blood Pressure Position Sitting Blood Pressure Location Left Arm Pulse Ox 100 Oxygen Delivery Method Room Air Weight Weight: 149 lb 14.629 oz Body Mass Index (BMI) 24.2 Physical Exam Const alert, oriented x3 and no apparent distress HEENT normocephalic and head/scalp atraumatic Resp normal respiratory effort Cardio regular rate GI soft to palpation and non-tender; Negative for non-distended Palpation: Negative for guarding Extremity no clubbing, cyanosis or edema Neuro CN's II-XII intact bilaterally Psych mental status grossly normal Assessment & Plan Assessment/Plan (1) Barretts esophagus: Surgery Risks - Colonoscopy Risks Include but are not Limited To: Described the procedure of an EGD with patient and risks include but are not limited to: Bleeding, perforation requiring further surgery. Patient no further questions at this time.
--- NOTE | 2022-03-07 07:30 | EGD_PTH ---
PATIENT: MITRA PORTILLO LOC: EN U#:[id number] AGE/SX: 76/F ROOM: RE03/07/[address]: Dr. Maddie Pearce MD : 1945 BED: DIS: 03/07/2022 SPEC #: [id number] RECD: 03/07/22 10:35 STATUS: BEULAH REJuanpablo #: [id number] FRANK: 03/07/22 07:[address]: Maddie Pearce DEPT: SURGICAL PATHOLOGY RECD BY: Latrice Escudero ENTERED: 03/07/22 11:11 SP TYPE: EGD BIOPSY OT DR: Dr. Karri Riggins, DO Tissues: A - Gastric mucous membrane B - Stomach, NOS Procedures: Special Stain Group II Surgery Specimen Level IV Alcian Blue/PAS (control) HEADER OPERATION: EGD ([facility]) with biopsies PRE-OP DIAGNOSIS: Atkinson?s esophagus TISSUE SUBMITTED: A - Antrum biopsy for H. pylori and histology, B - Gastroesophageal junction biopsy MICROSCOPIC DIAGNOSIS A. Antrum, biopsy: Mild gastritis. See microscopic description and comment. B. Gastroesophageal junction, biopsy: Fragments of gastroesophageal mucosa with chronic inflammation. Intestinal metaplasia (goblet cell metaplasia) not identified. See comment. SJ:rg 03/09/2022 COMMENT A. The results of immunohistochemistry for Helicobacter pylori will be reported separately ([id number]). B. Alcian blue/PAS stain with matched control is used in the evaluation of the specimen. MICROSCOPIC DESCRIPTION Slides are reviewed. A. The specimen shows fragments of gastric mucosa with chronic inflammatory cell infiltrates in the lamina propria consisting of lymphocytes and plasma cells, consistent with mild chronic gastritis. GROSS DESCRIPTION A - Received in fixative is one container labeled with the patient's name and designated antrum biopsy. The specimen consists of one irregular fragment of light krueger soft tissue that measures 0.4 x 0.2 x 0.1 cm. The specimen is totally submitted in one cassette. B - Received in fixative is one container labeled with the patient's name and designated GE junction biopsy. The specimen consists of multiple irregular fragments of light krueger soft tissue that in aggregate measure 1.5 x 0.3 x 0.1 cm. The specimen is totally submitted in one cassette. / KAIN:addie 03/07/2022 TC:3 CPT: 36875 x2, 59015
--- NOTE | 2022-03-07 07:30 | IMM_PTH ---
PATIENT: MITRA PORTILLO LOC: EN U#:[id number] AGE/SX: 76/F ROOM: RE03/07/[address]: Dr. Maddie Pearce MD : 1945 BED: DIS: 03/07/2022 SPEC #: [id number] RECD: 03/07/22 12:25 STATUS: BEULAH REQ #: [id number] FRANK: 03/07/22 07:[address]: Maddie Pearce DEPT: IMMUNOHISTOCHEMISTRY RECD BY: Malika Rivera ENTERED: 03/07/22 12:25 SP TYPE: IMMUNO OTHR DR: Dr. Karri Riggins, DO Tissues: A - Stomach, NOS Procedures: H Pylori (initial) PHYSICIAN & [place] [id number] SPECIMEN INFORMATION: Tissue Source: A ? Antrum biopsy Clinical Info: Atkinson?s esophagus Specimen Number: [id number] CPT code: 88966 METHODOLOGY: Deparaffinized sections of prefer/formalin-fixed tissue or PAP/DQ stained slides are incubated with monoclonal/polyclonal antibodies/oligonucleotide probes. Localization is made via biotin free immunoperoxidase method. Appropriate controls are performed and reacted as expected. Results on target cell population are indicated in the following table: RESULTS: ANTIBODY / CLONE RESULT Block A H Pylori (polyclonal) negative These tests were developed and their performance characteristics determined by [facility]. They may not have been cleared or approved by the U.S. Food and Drug Administration. The FDA has determined that such clearance or approval is not necessary. The above immunohistochemical/dualISH markers are ordered and reviewed by the Pathologist. INTERPRETATION: A. Antrum, biopsy: Negative for Helicobacter pylori organisms. SJ:addie 03/09/2022
--- NOTE | 2022-03-07 08:34 | OP.EGD_ITS ---
Patient Name: Sandhya Jain Procedure Date: 03/07/2022 8:11 AM Date of : 1945 Age: 76 Procedure: Upper GI endoscopy Indications: Screening for Atkinson's esophagus Providers: Maddie Pearce MD Medicines: Monitored Anesthesia Care Patient Profile: This is a 76 year old female. Complications: No immediate complications. Procedure: Pre-Anesthesia Assessment: - Prior to the procedure, a History and Physical was performed, and patient medications and allergies were reviewed. The patient's tolerance of previous anesthesia was also reviewed. The risks and benefits of the procedure and the sedation options and risks were discussed with the patient. All questions were answered, and informed consent was obtained. Prior Anticoagulants: The patient has taken no previous anticoagulant or antiplatelet agents. ASA Grade Assessment: Per anesthesia. After reviewing the risks and benefits, the patient was deemed in satisfactory condition to undergo the procedure. After obtaining informed consent, the endoscope was passed under direct vision. Throughout the procedure, the patient's blood pressure, pulse, and oxygen saturations were monitored continuously. The gastroscope was introduced through the mouth, and advanced to the second part of duodenum. The upper GI endoscopy was accomplished without difficulty. The patient tolerated the procedure well. Scope In: 8:18:48 AM Scope Out: 8:26:03 AM Total Procedure Duration Time 0 hours 7 minutes 15 seconds Findings: The Z-line was irregular and was found 45 cm from the incisors. Four biopsies were obtained with cold forceps for histology in a targeted manner at the gastroesophageal junction. Diffuse moderately erythematous mucosa without bleeding was found in the gastric antrum. Biopsies were taken with a cold forceps for histology. Biopsies were taken with a cold forceps for Helicobacter pylori testing. The examined duodenum was normal. The cardia and gastric fundus were normal on retroflexion. Impression: - Z-line irregular, 45 cm from the incisors. - Erythematous mucosa in the antrum. Biopsied. - Normal examined duodenum. - Four biopsies were obtained at the gastroesophageal junction. Recommendation: - Await pathology results. - Repeat upper endoscopy 2-3 years for screening purposes. - Continue present medications. Procedure Code(s): --- Professional --- 81655, PT, Esophagogastroduodenoscopy, flexible, transoral; with biopsy, single or multiple Diagnosis Code(s): --- Professional --- K22.8, Other specified diseases of esophagus K31.89, Other diseases of stomach and duodenum Z13.810, Encounter for screening for upper gastrointestinal disorder CPT copyright 2017 [employer]. All rights reserved. The codes documented in this report are preliminary and upon outpatient coder review may be revised to meet current compliance requirements. MD Maddie Nolan MD 03/07/2022 8:34:02 AM This report has been signed electronically. Number of Addenda: 0 Note Initiated On: 03/07/2022 8:11 AM
--- NOTE | 2022-03-07 08:35 | OP.CCLET_ITS ---
03/07/2022 Karri Riggins Re : Upper GI endoscopy procedure for Sandhya Jain Dear Dr. Riggins This procedure was performed on Monday, March 07, 2022. My impressions and recommendations are as follows: Impressions : - Z-line irregular, 45 cm from the incisors. - Erythematous mucosa in the antrum. Biopsied. - Normal examined duodenum. - Four biopsies were obtained at the gastroesophageal junction. Recommendations : - Await pathology results. - Repeat upper endoscopy 2-3 years for screening purposes. - Continue present medications. My findings are described in the full procedure note, which is enclosed. If I can be of further assistance, please feel free to contact me at Doctor phone number(s): , Work: . Sincerely, MD Maddie Nolan MD 03/07/2022 8:34:02 AM This report has been signed electronically.
== END 2022-03-07 09:06 | disposition home or self-care (01) ==
LOC: EN 06:18 → AC 06:21
PROVIDERS: PCP Family Medicine; Referring Provider Family Medicine; Visit Provider Surgery
PROC: 0DJ08ZZ Inspection of Upper Intestinal Tract, Via Natural or Artificial Opening Endoscopic (ICD-10-PCS; CPT 43235; principal; 2022-03-07 07:25)
DX: K29.50 Unspecified chronic gastritis without bleeding (principal); K31.89 Other diseases of stomach and duodenum; K21.00 Gastro-esophageal reflux disease with esophagitis, without bleeding; E78.00 Pure hypercholesterolemia, unspecified; I10 Essential (primary) hypertension; Z79.899 Other long term (current) drug therapy; Z87.891 Personal history of nicotine dependence
CPT/HCPCS: 43239; 88305; 88313; 88342; J7120; J2405

== ENCOUNTER → 2023-02-20 | Outpatient (CLI) | payer MEDICARE, BC, SELFPAY ==
--- NOTE | 2023-02-20 14:11 | RAD_ITS ---
EXAM: XR PELVIS, 1 OR 2 VIEWS CLINICAL INDICATION: groin pain TECHNIQUE: Frontal view of the pelvis. COMPARISON: No relevant prior studies available. FINDINGS: BONES/JOINTS: Degenerative changes in the lower lumbar spine with transitional anatomy at the lumbosacral junction and partial sacralization of L5. Bilateral SI joint arthrosis and bilateral hip joint arthrosis. Femoral acetabular joint space narrowing, sclerosis, and osteophytosis area. No displaced fracture. No widening of the pubic symphysis. SOFT TISSUES: No significant abnormality. No soft tissue swelling or gas. VASCULATURE: Vascular calcifications. RAD/Pelvis 1 or 2 Views IMPRESSION: No acute findings. Degenerative changes. Electronically Signed: Cam Greene DO at 20:31 EST ,
== END | disposition home or self-care (01) ==
LOC: RAD 14:06
PROVIDERS: PCP Family Medicine; Referring Provider Family Medicine; Visit Provider Family Medicine
DX: S33.6XXA Sprain of sacroiliac joint, initial encounter (principal)
CPT/HCPCS: 72170

== ENCOUNTER → 2023-03-19 | Outpatient (CLI) | payer MEDICARE, BC, SELFPAY ==
--- NOTE | 2023-03-19 08:01 | CT_ITS ---
STUDY: CT ABDOMEN AND PELVIS WITH CONTRAST REASON FOR EXAM: Female, 77 years old. Groin pain, hernia suspected RADIATION DOSAGE (If Supplied By Facility): CTDIvol = ( 16.97 ) mGy, DLP = ( 478.64 ) mGycm TECHNIQUE: Transaxial images were obtained from the dome of the diaphragm to the symphysis pubis with oral contrast. Oral and amp; IV Readi-CAT and amp; 100mL Isovue-300 was administered. Sagittal and coronal images were reconstructed. Individualized dose optimization techniques were used for this CT. COMPARISON: None. FINDINGS: The visualized lung bases are unremarkable. Coronary artery calcification. Normal liver. Normal gallbladder and extrahepatic biliary system. Normal spleen. Normal pancreas. Normal bilateral adrenal glands. Normal right kidney. Normal left kidney. Normal visualized stomach. Normal small intestine. Normal colon. The appendix is visualized and appears normal. There is diffuse atherosclerotic calcification of the abdominal aorta, without a demonstrated aneurysm. Normal inferior vena cava. Normal retroperitoneum. Mural thrombus is seen along the right side of the aorta at the level of the renal arteries. Normal urinary bladder. Normal abdominal wall. There are diffuse degenerative changes of the visualized lumbar spine. Levoscoliosis. CT/Abdomen/Pelvis WITH Contrast IMPRESSION: Atherosclerotic calcific plaques of the abdominal aorta with thrombus along the right side of the aorta at the level of the renal hilus. Levoscoliosis with diffuse degenerative changes of the lumbar spine. No hernia is seen. Electronically Signed: Satinder Woodruff MD at 15:35 EST ,
[2023-03-19 08:39] LABS: CREATININE FINGERSTICK < 1.0 mg/dL (0.55-1.02); EGFR FINGERSTICK > 60.0000 mL/min (>60)
== END | disposition home or self-care (01) ==
LOC: CT 08:01
PROVIDERS: PCP Family Medicine; Referring Provider Internal Medicine; Visit Provider Internal Medicine
DX: K40.90 Unilateral inguinal hernia, without obstruction or gangrene, not specified as recurrent (principal)
CPT/HCPCS: 74177; Q9967

== ENCOUNTER → 2023-04-18 | Outpatient (CLI) | payer MEDICARE, BC, SELFPAY ==
--- NOTE | 2023-04-18 08:46 | AAAS_ITS ---
Reason For Study: AAA Screening Aorta Measurements Aorta Doppler Measurements Proximal aorta measures2.13 x 2.13cm. in cross- Peak systolic flow velocities within the proximal sectional axis. aorta measure 57.8 cm/sec. Proximal aorta measures2.14cm. in longitudinal Peak systolic flow velocities within the mid aorta axis. measure 50.4 cm/sec. Mid aorta measures1.70 x 1.70cm. in cross- Peak systolic flow velocities within the distal sectional axis. aorta measure 62.5 cm/sec. Mid aorta measures1.57cm. in longitudinal axis. Distal aorta measures0.94 x 0.96cm. in cross- sectional axis. Distal aorta measures0.96cm. in longitudinal axis. Left Iliac Artery Left iliac artery measures 0.97 x 0.97 cm. in the cross-sectional axis. Left iliac artery measures 0.94 cm. in the longitudinal axis. Peak systolic velocity in the left iliac artery measures 82 cm/sec. Right Iliac Artery Right iliac artery measures 0.83 x 0.82 cm. in the cross-sectional axis. Right iliac artery measures 0.85 cm. in the longitudinal axis. Peak systolic velocity in the right iliac artery measures 82 cm/sec. Procedure Aorta IVC Iliac vasculature or bypass grafts 05258. Exam performed in department. VL/AAA Screening Interpretation Summary Aorta patent, normal caliber Bilateral iliac arteries patent, normal caliber Ordering Physician: Sujatha Mayo Referring Physician: Josr Riggins M.D. Performed By: Neena Berg RVT
== END | disposition home or self-care (01) ==
LOC: CVS 08:45
PROVIDERS: PCP Family Medicine; Referring Provider Physician Assistant; Visit Provider Physician Assistant
DX: I71.40 Abdominal aortic aneurysm, without rupture, unspecified (principal)
CPT/HCPCS: 76706

== ENCOUNTER 2023-07-30 07:45 | Day surgery (SDC) | payer MEDICARE, BC, SELFPAY ==
[2023-07-30] MEDS: Lactated Ringers 1,000 ML 15 ML IV (08:18)
[2023-07-30 08:19] VITALS: BP 177/90; PULSE 59; RESP 16; TEMP 36.2; O2SAT 99; BMI 24.7
--- NOTE | 2023-07-30 09:00 | COLBX_PTH ---
PATIENT: MITRA PORTILLO LOC: EN U#:[id number] AGE/SX: 78/F ROOM: RE07/30/[address]: Dr. Mario Valdes MD : 1945 BED: DIS: 07/30/2023 SPEC #: [id number] RECD: 07/30/23 13:12 STATUS: BEULAH HOLLINS #: [id number] FRANK: 07/30/23 09:[address]: Mario Valdes DEPT: SURGICAL PATHOLOGY RECD BY: Latrice Escudero ENTERED: 07/31/23 08:50 SP TYPE: COLON BX OTHR DR: Dr. Karri Riggins, DO Tissues: A - COLON BIOPSY B - Descending colon C - Rectum, NOS Procedures: Surgery Specimen Level IV HEADER OPERATION: Colonoscopy with polypectomy PRE-OP DIAGNOSIS: History of colon polyps TISSUE SUBMITTED: A- Hepatic flexure polyp, B- Descending colon polyps x2, C- Rectum polypsx2 MICROSCOPIC DIAGNOSIS A. Hepatic flexure polyp, polypectomy: Hyperplastic polyp. B. Descending colon polyp, polypectomy: Tubular adenoma. See comment. C. Rectum polyps, polypectomy: Hyperplastic polyp (two fragments). Tubular adenoma. See comment. KAIN/ 08/01/2023 COMMENT B. Only one fragment is noted in the specimen. C. Three fragments are noted in the specimen. MICROSCOPIC DESCRIPTION Slides are reviewed. GROSS DESCRIPTION A. Received in fixative is one container labeled with the patient's name and designated Hepatic flexure polyp. The specimen consists of a krueger-pink polyp measuring 1.7 x 0.5 x 0.2cm. The specimen is bisected and submitted entirely in one cassette. B. Received in fixative is one container labeled with the patient's name and designated Descending colon polyp x2. The specimen consists of one irregular fragment of light krueger soft tissue that measures 0.3 x 0.3 x 0.1 cm. The specimen is totally submitted in one cassette. C. Received in fixative is one container labeled with the patient's name and designated Rectal polyps x2. The specimen consists of three variable size pieces of krueger-pink soft tissue in aggregate 1.5 x 0.5 x 0.2cm and 0.2 to 0.7cm in greatest dimension. The entire specimen is submitted in one cassette. Derrick 07/31/23 TC:1 CPT: 74495j0
--- NOTE | 2023-07-30 09:16 | H&P.OPEN ---
HPI - General HPI Narrative MITRA PORTILLO, is a 78 F who presents for surveillance colonoscopy. She just saw me this past January to discuss this but had a long time getting it scheduled. Patient denies any abdominal pain or blood in the stool. Her last colonoscopy was 3 years ago and a tubovillous adenoma was removed. She requires follow-up for surveillance. [facility] Medical History (Updated 07/25/23 @ 09:01 by Teto Randall) Alcohol use Ankle fracture Arthritis Barretts esophagus Collagenous colitis Diarrhea Essential tremor Former smoker Gastric reflux GERD (gastroesophageal reflux disease) High cholesterol History of colon polyps History of edema History of irregular heartbeat Hyperlipemia Hypertension IBS (irritable bowel syndrome) Osteopenia Post-menopausal Sacroiliac (ligament) sprain Scoliosis Wears dentures Wears glasses Home Medications atorvastatin 40 mg tablet 40 mg PO QHS #30 tabs 04/09/23 [Rx Last Taken Unknown] budesonide 3 mg capsule,delayed,extended release 3 mg PO QAM K52.831 #90 ea 07/23/23 [Rx Last Taken Unknown] losartan 50 mg tablet 50 mg PO DAILY Blood pressure #90 tabs 07/23/23 [Rx Last Taken Unknown] pantoprazole 40 mg tablet,delayed release 40 mg PO DAILY reflux #90 tabs 07/23/23 [Rx Last Taken 07/30/23] propranolol 40 mg tablet 40 mg PO TID #270 tabs 07/23/23 [Rx Last Taken 07/30/23] Allergy/AdvReac Type Severity Reaction Status Date / Time codeine AdvReac Mild Nausea Verified 07/30/23 08:04 Family History Mother Arthritis Myocardial infarction, Onset Age: 92 Father Myocardial infarction, Onset Age: 80 Surgical History History of colonoscopy History of esophagogastroduodenoscopy (EGD) Hx of arthroscopy of shoulder Hx of tonsillectomy Social History Smoking Status: Former smoker second hand exposure: No alcohol intake: current alcohol intake frequency: holidays/special occasions only substance use type: does not use caffeine: Yes what type of physical activity do you participate in: aerobics frequency: 3-4 times per week Past Medical/Surgical History Planned Operation Planned Operative Procedure/s: COLONOSCOPY S.O.S: No Previous Hospitalizations/Surgeries HX Hospitalizations: Yes ([facility] 1 YR AGO IN [place], STAYED OVERNIGHT) HX of Surgeries: shoulder surgery right cscope egd 2019 Any Problems With Anesthesia: No You/Your Family Experience Fever (Hyperthermia) With Anes: No Cholinesterase deficiency: No Cardiovascular Hx Chest Pain within Last 2 months: No Hx of Irregular Heartbeat and/or Afib: Yes (irreg hr per hx, 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) Hx Heart Attack: No Hx Congestive Heart Failure: No Hx Rheumatic Fever: No Hx Hypertension: Yes (CONTROLLED WITH MEDS) Hx Internal Defibrillator: No Hx Pacemaker: No Hx Cardiac Catheterization: No Hx Cardiac Surgery/Stents/Etc.: No Hx Stress Test: No Hx Pain in Legs when Walking/Leg Cramps: No Respiratory Chronic Cough: No HX of Shortness of Breath: No Hoarseness: No Hx Chronic Obstructive Pulmonary Disease (COPD): No Hx Asthma: No Hx Emphysema: No Hx Sleep Apnea: No Hx Respiratory Tract Infection/Cold (presently): No Do You Snore Loudly (louder than talking or can be heard): No Do You Often Feel Tired/ Fatigued/ Sleepy Dring Daytime?: No Has Anyone Observed You Stop Breathing During Sleep?: No Result (for STOP score): Negative Hx Smoking: Yes (quit 15 yrs ago) Smoking Status: Former smoker Gastrointestinal Controlled With Meds: Yes (pantoprazole) Hx Gastrointestinal Disorders: Yes (ibs) Hx Gastrointestinal Bleed: No Hx Ulcer: Yes (in the past) Hx Hiatal Hernia: No Difficulty Chewing/Swallowing: No Special diet followed at home: No Hx Unplanned Weight Loss of 20#: No HX Unplanned Weight Gain of 20#: No Neurological Hx Seizures: No HX Syncope/Blackout Spells/Unconsciousness: No Hx Transient Ischemic Attacks (TIA): No Hx Multiple Sclerosis: No Hx Parkinson's Disease: No Hx Head/Neck Injury: No Hx Headaches: No Hx Back Injury/Pain: Yes (pain at times) Recent Onset of Speech Difficulty: No Restless Legs: No Does patient have nerve stimulator: No Blood Disorder Hx Leukemia: No Bleeding Tendencies: No Hx Deep Vein Thrombosis: No Hx High Cholesterol: Yes (on med) Blood Transmitted Disease: No Hx Hepatitis: No Hx Cirrhosis: No Hx Anemia: Yes (in the past as child) Hx Blood Disorders: No Reproduction Is Patient Lactating: No Hx Hysterectomy: No Hx Tubal Ligation: No Are You Post Menopause: Yes Genitourinary Hx Renal Disease: No Musculoskeletal Hx Arthritis: Yes Hx Rheumatoid Arthritis: No Hx Gout: No Recent Onset of an Orthopedic Problem: No Endocrine Hx Diabetes: No Thyroid Disease: No Hx Steroid Therapy: No Psycho/Social Hx Substance Use: No Hx Alcohol Use: Yes (social) Hx Anxiety: No Hx Depression: No Mental Illness: No Hx Dementia: No Miscellaneous Hx Cancer: No Recent Exposure to Contagious Disease: No Hx of C-Diff: No Any Loose Teeth: No (dentures) Allergies codeine Adverse Reaction (Mild, Verified 07/30/23 08:04) Nausea Discharge After D/C, Where Do you Plan to Go: Return Home From the [facility] History Number of Risk Factors: 4 Vital Signs Vital Signs Vital Signs: 07/30/23 08:19 07/30/23 08:19 Temperature 97.2 F L Temperature Source Temporal Pulse Rate 59 L Respiratory Rate 16 Respiratory Pattern Normal Blood Pressure 177/90 H Blood Pressure Mean 119 Blood Pressure Source Monitor Blood Pressure Position Sitting Blood Pressure Location Right Arm Pulse Ox 99 Oxygen Delivery Method Room Air Weight Weight: 149 lb 0.52 oz Body Mass Index (BMI) 24.7 Physical Exam Const alert and oriented x3 HEENT normocephalic Eyes PERRL Resp normal respiratory effort and normal air movement Cardio regular rate and regular rhythm GI soft to palpation, non-tender and non-distended Extremity normal to inspection Assessment & Plan Assessment/Plan (1) History of colon polyps: Surgery Risks - Colonoscopy Risks Include but are not Limited To: Risks include but are not limited to: Bleeding, perforation requiring further surgery, inability to complete colonoscopy requiring barium enema.
[2023-07-30] MEDS: 0.9% Saline Lock 10 ML Syringe IV (09:37)
[2023-07-30 09:45] VITALS: BP 120/79; BP 177/90; PULSE 70; RESP 18; TEMP 36.3; O2SAT 100
[2023-07-30 09:50] VITALS: BP 122/86; BP 177/90; PULSE 65; RESP 18; O2SAT 97
--- NOTE | 2023-07-30 09:52 | OP.COLON_ITS ---
Patient Name: Sandhya Jain Procedure Date: 07/30/2023 9:20 AM Date of : 1945 Age: 78 Procedure: Colonoscopy Indications: High risk colon cancer surveillance: Personal history of colonic polyps Providers: Mario Valdes MD Medicines: Propofol per Anesthesia Patient Profile: This is a 78 year old female. Refer to note in patient chart for documentation of history and physical. Last Colonoscopy: 3 years ago. Complications: No immediate complications. Estimated blood loss: Minimal. Procedure: Pre-Anesthesia Assessment: - Prior to the procedure, a History and Physical was performed, and patient medications and allergies were reviewed. The patient's tolerance of previous anesthesia was also reviewed. The risks and benefits of the procedure and the sedation options and risks were discussed with the patient. All questions were answered, and informed consent was obtained. Prior Anticoagulants: The patient has taken no anticoagulant or antiplatelet agents. After reviewing the risks and benefits, the patient was deemed in satisfactory condition to undergo the procedure. After I obtained informed consent, the scope was passed under direct vision. Throughout the procedure, the patient's blood pressure, pulse, and oxygen saturations were monitored continuously. The Colonoscope was introduced through the anus and advanced to the cecum, identified by appendiceal orifice and ileocecal valve. The colonoscopy was performed without difficulty. The patient tolerated the procedure well. The quality of the bowel preparation was good. The ileocecal valve, appendiceal orifice, and rectum were photographed. Scope In: 9:26:24 AM Scope Withdrawal Time 0 hours 6 minutes 2 seconds Scope Out: 9:39:11 AM Total Procedure Duration Time 0 hours 12 minutes 47 seconds Findings: Four polyps were found in the rectum, descending colon and hepatic flexure. The polyps were small in size. These polyps were removed with a hot snare. Resection and retrieval were complete. A medium polyp was found in the hepatic flexure. The polyp was sessile. The polyp was removed with a saline injection-lift technique using a hot snare. Resection and retrieval were complete. The exam was otherwise without abnormality on direct and retroflexion views. Impression: - Four small polyps in the rectum, in the descending colon and at the hepatic flexure, removed with a hot snare. Resected and retrieved. - One medium polyp at the hepatic flexure, removed using injection-lift and a hot snare. Resected and retrieved. - The examination was otherwise normal on direct and retroflexion views. Recommendation: - Discharge patient to home. - Resume previous diet. - Continue present medications. - Await pathology results. - Repeat colonoscopy in 3 years for surveillance. Procedure Code(s): --- Professional --- 22132, Colonoscopy, flexible; with removal of tumor(s), polyp(s), or other lesion(s) by snare technique 69980, Colonoscopy, flexible; with directed submucosal injection(s), any substance Diagnosis Code(s): --- Professional --- Z86.010, Personal history of colonic polyps D12.8, Benign neoplasm of rectum D12.4, Benign neoplasm of descending colon D12.3, Benign neoplasm of transverse colon (hepatic flexure or splenic flexure) CPT copyright 2021 [employer]. All rights reserved. The codes documented in this report are preliminary and upon retail administrative assistant review may be revised to meet current compliance requirements. Mario Valdes MD 07/30/2023 9:52:06 AM This report has been signed electronically. Number of Addenda: 0 Note Initiated On: 07/30/2023 9:20 AM
--- NOTE | 2023-07-30 09:52 | OP.CCLET_ITS ---
07/30/2023 Karri Riggins Re : Colonoscopy procedure for Sandhya Jain Dear Dr. Riggins This procedure was performed on Sunday, July 30, 2023. My impressions and recommendations are as follows: Impressions : - Four small polyps in the rectum, in the descending colon and at the hepatic flexure, removed with a hot snare. Resected and retrieved. - One medium polyp at the hepatic flexure, removed using injection-lift and a hot snare. Resected and retrieved. - The examination was otherwise normal on direct and retroflexion views. Recommendations : - Discharge patient to home. - Resume previous diet. - Continue present medications. - Await pathology results. - Repeat colonoscopy in 3 years for surveillance. My findings are described in the full procedure note, which is enclosed. If I can be of further assistance, please feel free to contact me at Doctor phone number(s): , Work: . Sincerely, Mario Valdes MD 07/30/2023 9:52:06 AM This report has been signed electronically.
[2023-07-30 09:55] VITALS: BP 163/86; BP 177/90; PULSE 62; RESP 18; O2SAT 97
[2023-07-30 09:59] VITALS: BP 177/90; TEMP 36.1
[2023-07-30 10:17] VITALS: BP 177/90
== END 2023-07-30 10:26 | disposition home or self-care (01) ==
LOC: EN 07:45 → AC 07:48
PROVIDERS: PCP Family Medicine; Referring Provider Family Medicine; Visit Provider Surgery
PROC: 0DJD8ZZ Inspection of Lower Intestinal Tract, Via Natural or Artificial Opening Endoscopic (ICD-10-PCS; CPT 45378; principal; 2023-07-30 08:55)
DX: Z12.11 Encounter for screening for malignant neoplasm of colon (principal); D12.8 Benign neoplasm of rectum; E78.5 Hyperlipidemia, unspecified; I10 Essential (primary) hypertension; Z86.010 Personal history of colon polyps; Z87.891 Personal history of nicotine dependence; D12.4 Benign neoplasm of descending colon; D12.3 Benign neoplasm of transverse colon
CPT/HCPCS: 45385; 45381; 88305; J7120; A4216; J2405

== ENCOUNTER → 2023-08-01 | Outpatient (CLI) | payer MEDICARE, BC, SELFPAY ==
[2023-08-01 12:29] LABS: Absolute Lymphocyte Count 1.71 X10^3/uL (0.83-4.51); Absolute Neutrophil Count 3.9 X10^3/uL (2.0-7.7); Basophil# 0.07 X10^3/uL; Basophil% 1.1 % (0-1); Eosinophil# 0.23 X10^3/uL; Eosinophils% 3.5 % (0-5); Hematocrit 36.5 % (37-47); Lymphocyte # 1.71 X10^3/ul (0.83-4.51); Lymphocyte % 25.9 % (19-41); Mean Corp Hgb Conc 32.9 g/dL (32-36); Mean Corpuscular Hgb 32.3 pg (27.0-32.0); Mean Corpuscular Volume 98.4 fL (81-99); Mean Platelet Vol. 10.7 fl (6.2-12.0); Monocyte# 0.68 X10^3/uL; Monocyte% 10.3 % (0-10); NRBC Flagged by Analyzer 0 % (0-5); Neutrophil # 3.89 X10^3/uL (2.7-7.7); Neutrophil % 58.7 % (47-70); Platelet Count 328 K/mm3 (150-450); RBC Distribution Width CV 13.1 % (11.6-14.6); RBC Distribution Width SD 46.9 fl (35.1-43.9); Red Blood Count 3.71 M/mm3 (4.2-5.4); White Blood Count 6.6 K/mm3 (4.4-11.0)
[2023-08-01 12:34] LABS: ALB/GLOB Ratio 0.9 RATIO (0.9-2.4); AST(SGOT) 21 U/L (15-37); Alanine Aminotransfer ALT/SGPT 18 U/L (13-56); Albumin, Serum 3.2 g/dL (3.2-5.0); Alkaline Phosphatase 88 U/L (45-117); Anion Gap 4 (5-15); BUN 10 mg/dL (7-18); BUN/Creat Ratio 9.9 RATIO (10-20); Calcium,Total 9.7 mg/dL (8.5-10.1); Chloride 107 mmol/L (98-107); Creatinine, Serum 1.01 mg/dL (0.55-1.02); EST Glomerular Filtration Rate 57 mL/min (>60); Est Glom Filt Rate - Afr Amer 68 mL/min (>60); Globulin 3.7 g/dL (2.2-4.2); Glucose 107 mg/dL (74-106); Potassium 4.1 mmol/L (3.5-5.1); Protein, Total 6.9 g/dL (6.4-8.2); Sodium Level 141 mmol/L (136-145)
== END | disposition home or self-care (01) ==
LOC: BIMLAB 09:04
PROVIDERS: PCP Family Medicine; Referring Provider Family Medicine; Visit Provider Family Medicine
DX: I10 Essential (primary) hypertension (principal); K22.70 Barrett's esophagus without dysplasia
CPT/HCPCS: 36415; 80053; 85025

== ENCOUNTER → 2024-07-14 | Outpatient (CLI) | payer MEDICARE, BC, SELFPAY ==
[2024-07-14 12:22] LABS: Absolute Lymphocyte Count 2.36 X10^3/uL (0.83-4.51); Absolute Neutrophil Count 4.4 X10^3/uL (2.0-7.7); Basophil# 0.05 X10^3/uL; Basophil% 0.7 % (0-1); Eosinophil# 0.14 X10^3/uL; Eosinophils% 1.8 % (0-5); Hematocrit 35.4 % (37-47); Hemoglobin 12.2 g/dL (12.0-15.0); Lymphocyte # 2.36 X10^3/ul (0.83-4.51); Lymphocyte % 30.8 % (19-41); Mean Corp Hgb Conc 34.5 g/dL (32-36); Mean Corpuscular Hgb 33.2 pg (27.0-32.0); Mean Corpuscular Volume 96.5 fL (81-99); Monocyte# 0.66 X10^3/uL; Monocyte% 8.6 % (0-10); NRBC Flagged by Analyzer 0 % (0-5); Neutrophil # 4.41 X10^3/uL (2.7-7.7); Neutrophil % 57.6 % (47-70); Platelet Count 307 K/mm3 (150-450); RBC Distribution Width CV 13.2 % (11.6-14.6); RBC Distribution Width SD 47.2 fl (35.1-43.9); Red Blood Count 3.67 M/mm3 (4.2-5.4); White Blood Count 7.7 K/mm3 (4.4-11.0)
[2024-07-14 12:53] LABS: ALB/GLOB Ratio 1.2 RATIO (0.9-2.4); AST(SGOT) 36 U/L (<=31); Alanine Aminotransfer ALT/SGPT 14 U/L (<=34); Albumin, Serum 3.9 g/dL (3.4-4.8); Alkaline Phosphatase 82 U/L (35-104); Anion Gap 13 (5-15); BUN 15 mg/dL (4-19); BUN/Creat Ratio 11.9 RATIO (10-20); Calcium,Total 9.7 mg/dL (7.6-11.0); Chloride 105 mmol/L (98-108); Cholesterol 171 mg/dL (<=200); Creatinine, Serum 1.26 mg/dL (0.70-1.20); EST Glomerular Filtration Rate 44 (>60); Globulin 3.1 g/dL (2.2-4.2); Glucose 92 mg/dL (70-99); High Density Lipoprotein 80 mg/dL; Low Density Lipoprotein Calc. 67 mg/dL; Potassium 3.6 mmol/L (3.3-5.1); Sodium Level 141 mmol/L (133-145); Total Bilirubin 0.53 mg/dL (0.00-1.30); Triglycerides 120 mg/dL; Very Low Density Lipoprotein 24 mg/dL (5-40); cholesterol:hdl ratio screen 2.13
== END | disposition home or self-care (01) ==
LOC: BIMLAB 08:53
PROVIDERS: PCP Family Medicine; Referring Provider Family Medicine; Visit Provider Family Medicine
DX: K52.831 Collagenous colitis (principal); E78.5 Hyperlipidemia, unspecified
CPT/HCPCS: 36415; 80053; 80061; 85025

== ENCOUNTER → 2024-07-15 | Outpatient (CLI) | payer MEDICARE, BC, SELFPAY ==
--- NOTE | 2024-07-15 10:00 | RAD_ITS ---
EXAM: XR Chest, 2 Views CLINICAL INDICATION: PNEUMONIA IN MAY TECHNIQUE: Frontal and lateral views of the chest. COMPARISON: No relevant prior studies available. FINDINGS: LUNGS AND PLEURAL SPACES: Hyperlucent lungs. Flattening of the diaphragm. Pulmonary venous congestion. No consolidation. No pneumothorax. HEART: Unremarkable. No cardiomegaly. MEDIASTINUM: Unremarkable. Normal mediastinal contour. BONES/JOINTS: S shaped scoliosis of the thoracolumbar spine. No acute fracture. RAD/Chest PA and Lateral IMPRESSION: 1. Suggestion of COPD. 2. Pulmonary venous congestion. Reading [facility]
== END | disposition home or self-care (01) ==
LOC: MTRAD 10:00
PROVIDERS: PCP Family Medicine; Referring Provider Family Medicine; Visit Provider Family Medicine
DX: J18.9 Pneumonia, unspecified organism (principal)
CPT/HCPCS: 71046

== ENCOUNTER → 2024-08-10 | Outpatient (CLI) | payer MEDICARE, BC, SELFPAY ==
--- NOTE | 2024-08-10 08:30 | ECHOD_ITS ---
Reason For Study Reason For Study: CHF Procedure This was a 2D Doppler, Color Flow transthoracic echocardiogram. Exam performed in department. Left Ventricle Normal LV size. The estimated ejection fraction is 55 %. Unable to assess diastolic dysfunction. No regional wall motion abnormalities noted. Right Ventricle Normal RV size. Normal systolic function. Atria The left and right atria are normal. No doppler evidence for ASD. Mitral Valve There is no mitral valve stenosis. Trivial mitral valve insufficiency. Tricuspid Valve There is no tricuspid stenosis. Trivial tricuspid valve insufficiency. Pulmonary artery systolic pressure is 40 mmHg. Aortic Valve Trisinus/trileaflet aortic valve. There is no aortic stenosis. No aortic valve insufficiency. Pulmonic Valve There is no pulmonic valvular stenosis. Trivial pulmonic valve insufficiency. Great Vessels Normal sized aortic root. Pericardium/Pleural No pericardial effusion. MMode/2D Measurements & Calculations LVIDd: 4.2 cm IVSd: 1.1 cm LVOT diam: 2.0 cm LVIDs: 2.9 cm LVPWd: 1.2 cm LVOT area: 3.3 cm2 RVDd: 2.5 cm FS: 29.8 % Ao root diam: 3.0 cm LAV(MOD-bp): 56.2 ml LVAd ap4: 23.0 cm2 LAV(MOD-bp) Indexed: 32.1 ml/m2 LVLd ap4: 7.3 cm LAV(MOD-sp2): 29.9 ml EDV(MOD-sp4): 62.9 ml LAV(MOD-sp4): 68.7 ml EDV(sp4-el): 61.5 ml LVAs ap4: 12.9 cm2 LVLs ap4: 6.4 cm ESV(MOD-sp4): 25.0 ml ESV(sp4-el): 22.1 ml EF(MOD-sp4): 60.3 % EF(sp4-el): 64.1 % SV(MOD-sp4): 37.9 ml SV(sp4-el): 39.5 ml LA A4 area: 22.5 cm2 SI(MOD-sp4): 21.7 ml/m2 LA dimension(2D): 3.5 cm RA A4 area: 20.3 cm2 Doppler Measurements & Calculations Lat Peak E' Theo: 12.5 cm/sec Med Peak E' Theo: 6.7 cm/sec Ao V2 max: 101.5 cm/sec Ao max P.1 mmHg Ao V2 mean: 71.8 cm/sec Ao mean P.3 mmHg Ao V2 VTI: 24.7 cm AV (velocity ratio): 0.95 ALCIRA(I,D): 3.1 cm2 ALCIRA(V,D): 3.0 cm2 LV V1 max: 95.1 cm/sec SV(LVOT): 76.3 ml PA V2 max: 66.1 cm/sec LV V1 max P.6 mmHg PA V2 mean: 46.6 cm/sec LV V1 mean P.9 mmHg LV V1 mean: 63.7 cm/sec LV V1 VTI: 23.5 cm TR max theo: 301.4 cm/sec TR max P.3 mmHg ECHO/Echo Complete Interpretation Summary The estimated ejection fraction is 55 %. Unable to assess diastolic dysfunction. Trivial mitral valve insufficiency. Ordering Physician: Karri Riggins Referring Physician: Karri Riggins Performed By: Jaci Austin RCS
== END | disposition home or self-care (01) ==
LOC: CVS 08:28
PROVIDERS: PCP Family Medicine; Referring Provider Family Medicine; Visit Provider Family Medicine
DX: R06.02 Shortness of breath (principal)
CPT/HCPCS: 93306

== ENCOUNTER → 2025-03-26 | Outpatient (CLI) | payer MEDICARE, BC, SELFPAY ==
--- NOTE | 2025-03-26 09:19 | RAD_ITS ---
PROCEDURE: LUMBAR SPINE 2 OR 3 VIEWS 03/26/2025 REASON FOR EXAM: PAIN TECHNIQUE: Procedure Code: RADSPLL Modality: DX Procedure: LUMBAR SPINE 2 OR 3 VIEWS COMPARISON: May 2022. FINDINGS: Vertebral body heights: Degenerative changes mid to lower lumbar spine negative for fracture. Alignment: Severe roto scoliosis convex left. Disc spaces: Moderate degenerative disc disease throughout the lumbar spine.. Facet joints: Moderate facet joint hypertrophy throughout the lumbar spine.. Soft tissues: Adjacent soft tissues negative. Other: Least moderate vascular calcifications abdominal its branches. Normal amount of stool in the imaged colon. RAD/Lumbar Spine 2 or 3 Views IMPRESSION: Degenerative changes lumbar spine but no acute abnormality. Roto scoliosis of the lumbar spine. Vascular calcifications abdominal its branches. Reading Location: [id number]
--- NOTE | 2025-03-26 09:19 | RAD_ITS ---
PROCEDURE: PELVIS 1 OR 2 VIEWS 03/26/2025 REASON FOR EXAM: LOW BACK PAIN TECHNIQUE: Procedure Code: RADPEL Modality: DX Procedure: PELVIS 1 OR 2 VIEWS COMPARISON: 03/29/2023. FINDINGS: No acute fracture or dislocation. Moderate degenerative changes are noted within both hips, more pronounced on the left. Severe degenerative changes and levoconvex scoliosis of the lumbar spine is incompletely imaged, unchanged. Extensive atherosclerotic calcifications, unchanged. A few phleboliths are seen within the pelvis. RAD/Pelvis 1 or 2 Views IMPRESSION: As above. Reading Location: [id number]
== END | disposition home or self-care (01) ==
LOC: RAD 09:00
PROVIDERS: PCP Family Medicine; Referring Provider Physician Assistant; Visit Provider Physician Assistant
DX: M53.3 Sacrococcygeal disorders, not elsewhere classified (principal)
CPT/HCPCS: 72100; 72170